=== PATIENT | female | born 1975 | race Caucasian/White ===

== ENCOUNTER 2018-02-03 01:01 | Observation (INO) ==
[2018-02-03] MEDS ORDERED: 0.9 % Sodium Chloride 1,000 ML IVC ONE (01:16)
--- NOTE | 2018-02-03 01:18 | Emergency Department Note ---
Disposition Clinical Impression: Hyponatremia, Diarrhea Disposition: Admitted As Inpatient General Adult HPI - General Chief complaint: ED Nausea/Vomiting/Diarrhea Stated complaint: diarrhea Time Seen by Provider: 02/03/18 01:09 - History of Present Illness Pain Scale: 8 - Related Data Home Medications Medication Instructions Recorded Confirmed RX: Multivitamin [Multivitamins] 1 each PO DAILY #0 01/22/15 03/09/16 RX: Melatonin 5 mg PO HS PRN 10/06/15 03/09/16 RX: Omeprazole [PriLOSEC] 20 mg PO DAILY 10/06/15 03/09/16 RX: Cholecalciferol (Vitamin D3) 1,000 unit PO DAILY 03/09/16 03/09/16 [Vitamin D3] RX: Divalproex (24 HR) [Depakote 1,000 mg PO HS 03/09/16 03/09/16 ER (24 HR)] RX: Divalproex (24 HR) [Depakote 750 mg PO QAM 03/09/16 03/09/16 ER (24 HR)] RX: Etodolac [Lodine] 400 mg PO BID 03/09/16 03/09/16 RX: Norgestrel-Ethinyl Estradiol 1 each PO DAILY 03/09/16 03/09/16 [Xit-Eaehhbls-53 Tablet] RX: Sertraline [Zoloft] 50 mg PO DAILY 03/09/16 03/09/16 Previous Rx's Medication Instructions Recorded RX: Clindamycin [Cleocin] 150 mg PO Q6HR #8 capsule 03/08/16 RX: OxyCODONE Immed Rel 5 mg PO Q8HR PRN #30 tablet 03/08/16 [Roxicodone 5 MG] Allergies Allergy/AdvReac Type Severity Reaction Status Date / Time topiramate [From Topamax] AdvReac Irritable Verified 03/09/16 06:42 IV contrast Allergy See Uncoded 06/06/15 21:23 Comments Past Medical History - Past Medical History Medical history: Reports: GERD, seizures Surgical history: Reports: orthopedic, other, other Psychiatric history: Reports: no psych history - Social History Smoking Status: Never smoker Smokeless Tobacco Status: No Alcohol use: Reports: none Drug use: Reports: none Course Vital Signs Temperature 98.9 F 02/03/18 01:04 Pulse Rate 87 02/03/18 01:04 Respiratory Rate 16 02/03/18 01:04 Blood Pressure 127/84 02/03/18 01:04 O2 Sat by Pulse Oximetry 97 02/03/18 01:04 Temperature 98.9 F 02/03/18 01:15 Pulse Rate 86 02/03/18 03:53 Respiratory Rate 16 02/03/18 03:53 Blood Pressure 127/85 02/03/18 03:53 O2 Sat by Pulse Oximetry 98 02/03/18 03:53 Oxygen Delivery Oxygen Delivery Room Air Medical Decision Making - Lab Data Result diagrams: 02/03/18 01:35 02/03/18 01:35 Lab Results 02/03/18 02/03/18 02/03/18 Range/Units 01:35 01:35 01:35 WBC 5.3 (4.3-11.1) K/mcL RBC 4.26 (3.82-4.97) M/mcL Hgb 12.9 (11.5-15.4) g/dL Hct 37.2 (35.3-44.9) % MCV 87.3 (83.0-100.0) fL MCH 30.3 (28.0-33.3) pg MCHC 34.7 (31.6-35.5) g/dL RDW 13.2 (11.5-14.5) % Plt Count 186 (140-400) K/mcL MPV 9.8 (9.4-12.4) fL Immature Gran % 0.4 (0-4) % Seg Neutrophils % 34.9 % Lymphocytes % 56.1 % Monocytes % 8.0 % Eosinophils % 0.4 % Basophils % 0.2 % Neutrophils # 1.9 (1.6-8.9) K/mcL Lymphocytes # 3.0 (0.6-4.6) K/mcL Monocytes # 0.4 (0.0-1.3) K/mcL Eosinophils # 0.0 (0.0-0.6) K/mcL Basophils # 0.0 (0.0-0.2) K/mcL Sodium 128 L (136-145) mEq/L Potassium 4.1 (3.5-5.1) mEq/L Chloride 97 L (98-107) mEq/L Carbon Dioxide 23 (23-29) mEq/L BUN 9 (6-20) mg/dL Creatinine 0.55 L (0.60-1.20) mg/dL Est GFR ( Amer) > 60 (> 60) Est GFR (Non-Af Amer) > 60 (> 60) BUN/Creatinine Ratio 16 (6-26) Glucose 101 (70-105) mg/dL Calculated Osmolality 265 L (280-300) Calcium 8.6 (8.6-10.3) mg/dL Magnesium 1.8 (1.6-2.6) mg/dL Total Bilirubin 0.3 (0.3-1.0) mg/dL AST 21 (13-39) Units/L ALT 20 (7-52) Units/L Alkaline Phosphatase 27 L (34-104) Units/L Serum Total Protein 6.7 (6.4-8.9) g/dL Albumin 4.1 (3.5-5.7) g/dL Globulin 2.6 (2.4-3.5) g/dL Albumin/Globulin Ratio 1.6 (1.1-2.2) Lipase 25 (11-82) Units/L Stl C. diff Tox B Gene (Negative) Valproic Acid 112 H* (50-100) mcg/mL 02/03/18 Range/Units 03:15 WBC (4.3-11.1) K/mcL RBC (3.82-4.97) M/mcL Hgb (11.5-15.4) g/dL Hct (35.3-44.9) % MCV (83.0-100.0) fL MCH (28.0-33.3) pg MCHC (31.6-35.5) g/dL RDW (11.5-14.5) % Plt Count (140-400) K/mcL MPV (9.4-12.4) fL Immature Gran % (0-4) % Seg Neutrophils % % Lymphocytes % % Monocytes % % Eosinophils % % Basophils % % Neutrophils # (1.6-8.9) K/mcL Lymphocytes # (0.6-4.6) K/mcL Monocytes # (0.0-1.3) K/mcL Eosinophils # (0.0-0.6) K/mcL Basophils # (0.0-0.2) K/mcL Sodium (136-145) mEq/L Potassium (3.5-5.1) mEq/L Chloride (98-107) mEq/L Carbon Dioxide (23-29) mEq/L BUN (6-20) mg/dL Creatinine (0.60-1.20) mg/dL Est GFR ( Amer) (> 60) Est GFR (Non-Af Amer) (> 60) BUN/Creatinine Ratio (6-26) Glucose (70-105) mg/dL Calculated Osmolality (280-300) Calcium (8.6-10.3) mg/dL Magnesium (1.6-2.6) mg/dL Total Bilirubin (0.3-1.0) mg/dL AST (13-39) Units/L ALT (7-52) Units/L Alkaline Phosphatase (34-104) Units/L Serum Total Protein (6.4-8.9) g/dL Albumin (3.5-5.7) g/dL Globulin (2.4-3.5) g/dL Albumin/Globulin Ratio (1.1-2.2) Lipase (11-82) Units/L Stl C. diff Tox B Gene Negative (Negative) Valproic Acid (50-100) mcg/mL Attestation Statement - Attestation Attestation: I examined this patient and my medical decision-making was reviewed with the Resident Physician. I agree with the documented findings, disposition and treatment plan as described except to the extent set forth below. [id number] time provided Patient arrives complaining of diarrhea that started today. She recently completed antibiotics 2 weeks ago. No recent travel history. One known ill contacts. She denies nausea, vomiting or bloody stools. Mild periumbilical abdominal cramping. Appears in no acute distress on exam
--- NOTE | 2018-02-03 01:29 | Emergency Department Note ---
Disposition Clinical Impression: Hyponatremia, Diarrhea Disposition: Admitted As Inpatient Referrals: Chaitanya Pagan MD [Primary Care Provider] - Forms: ED Satisfaction Letter Nausea/Vomiting/Diarrhea HPI - General Chief complaint: ED Nausea/Vomiting/Diarrhea Stated complaint: diarrhea Time Seen by Provider: 02/03/18 01:09 Source: patient, family Limitations: no limitations - History of Present Illness HPI Narrative: 42 YO F with PMH significant for hydrocephalus S/P THIRD COOK shunt, SIADH and seizure disorder (on Keppra) who presents with approximately 12 hours of frequen diarrhea. Pily has one recent sick contact exposure approximately 2 days ago, who had similar symptoms. She has also recently been on antibiotics (amoxicillin) for a chronic sinus infection. at approximately Noon yesterday she had an initial episode of nonbloody diarrhea, then had approximately 20 further episodes between then and her presentation to the ED. She denies F/C/NS, N/V. She denies melena or hematochezia, but does admit to some cramping abdominal pain. Her appetite has decreased since onset of symptoms. Pt Subjective Complaint: diarrhea Onset (ago): hour(s) Associated Abdominal Pain: Yes If pain, Location of pain: diffuse Severity: moderate Quality: cramping Consistency: intermittent Improves with: nothing Worsens with: nonthing Context: sick contacts, recent antibiotic use Associated symptoms: Denies: chest pain, cough, diaphoresis, fever/chills - Related Data Home Medications Medication Instructions Recorded Confirmed Multivitamin [Multivitamins] 1 each PO DAILY #0 01/22/15 03/09/16 Melatonin 5 mg PO HS PRN 10/06/15 03/09/16 Omeprazole [PriLOSEC] 20 mg PO DAILY 10/06/15 03/09/16 Cholecalciferol (Vitamin D3) 1,000 unit PO DAILY 03/09/16 03/09/16 [Vitamin D3] Divalproex (24 HR) [Depakote ER 1,000 mg PO HS 03/09/16 03/09/16 (24 HR)] Divalproex (24 HR) [Depakote ER 750 mg PO QAM 03/09/16 03/09/16 (24 HR)] Etodolac [Lodine] 400 mg PO BID 03/09/16 03/09/16 Norgestrel-Ethinyl Estradiol 1 each PO DAILY 03/09/16 03/09/16 [[id number]-69 Tablet] Sertraline [Zoloft] 50 mg PO DAILY 03/09/16 03/09/16 Previous Rx's Medication Instructions Recorded Clindamycin [Cleocin] 150 mg PO Q6HR #8 capsule 03/08/16 OxyCODONE Immed Rel [Roxicodone 5 5 mg PO Q8HR PRN #30 tablet 03/08/16 MG] Allergies Allergy/AdvReac Type Severity Reaction Status Date / Time topiramate [From Topamax] AdvReac Irritable Verified 03/09/16 06:42 IV contrast Allergy See Uncoded 06/06/15 21:23 Comments Constitutional: Denies: fever, chills, weakness ENT ED: Denies: ear pain, throat pain, dysphagia Cardiovascular: Denies: chest pain, palpitations Respiratory: Denies: cough, dyspnea, wheezes Gastrointestinal: Reports: abdominal pain, diarrhea. Denies: nausea, vomiting, melena, hematochezia Past Medical History - Past Medical History Medical history: Reports: GERD, seizures Surgical history: Reports: orthopedic, other, other Psychiatric history: Reports: no psych history - Social History Smoking Status: Never smoker Smokeless Tobacco Status: No Alcohol use: Reports: none Drug use: Reports: none Physical Exam - General Limitations: no limitations General appearance: alert - Head Head exam: atraumatic, normocephalic, normal inspection - Eye Eye exam: Present: normal appearance, PERRL, EOMI - ENT ENT exam: normal exam, normal oropharynx, mucous membranes moist - Neck Neck exam: Present: normal inspection, full ROM - Chest Chest inspection: Present: normal inspection, symmetric chest wall rise - Respiratory Respiratory exam: Present: normal lung sounds bilaterally. Absent: respiratory distress, wheezes, accessory muscle use - Cardiovascular Cardiovascular exam: Present: regular rate, normal rhythm, normal heart sounds. Absent: tachycardia, systolic murmur - Abdominal Exam Abdominal exam: Present: soft, Non-Tender, diminished bowel sounds - Neurological Exam Neurological exam: Present: alert, oriented X3, CN II-XII intact - Psychiatric Psychiatric exam: Present: normal affect, normal mood - Skin Skin exam: Present: warm, dry, intact Course Course Narrative: Lab results reveal hyponatremia of 128. This finding was discussed with family, who was concerned as Pily has a history of precipitous drops in her sodium level in the setting of changes related to her SIADH. This individual with hyponatremia, SIADH and signficant fluid loss 2/2 diarrhea merits inpatient evaluation and treatment. Vital Signs Temperature 98.9 F 02/03/18 01:04 Pulse Rate 87 02/03/18 01:04 Respiratory Rate 16 02/03/18 01:04 Blood Pressure 127/84 02/03/18 01:04 O2 Sat by Pulse Oximetry 97 02/03/18 01:04 Temperature 98.9 F 02/03/18 01:15 Pulse Rate 87 02/03/18 01:15 Respiratory Rate 16 02/03/18 01:15 Blood Pressure 127/84 02/03/18 01:15 O2 Sat by Pulse Oximetry 97 02/03/18 01:15 Oxygen Delivery Oxygen Delivery Room Air Nausea/Vomiting/Diarrhea - Lab Data Result diagrams: 02/03/18 01:35 02/03/18 01:35 Lab Results 02/03/18 02/03/18 02/03/18 Range/Units 01:35 01:35 01:35 WBC 5.3 (4.3-11.1) K/mcL RBC 4.26 (3.82-4.97) M/mcL Hgb 12.9 (11.5-15.4) g/dL Hct 37.2 (35.3-44.9) % MCV 87.3 (83.0-100.0) fL MCH 30.3 (28.0-33.3) pg MCHC 34.7 (31.6-35.5) g/dL RDW 13.2 (11.5-14.5) % Plt Count 186 (140-400) K/mcL MPV 9.8 (9.4-12.4) fL Immature Gran % 0.4 (0-4) % Seg Neutrophils % 34.9 % Lymphocytes % 56.1 % Monocytes % 8.0 % Eosinophils % 0.4 % Basophils % 0.2 % Neutrophils # 1.9 (1.6-8.9) K/mcL Lymphocytes # 3.0 (0.6-4.6) K/mcL Monocytes # 0.4 (0.0-1.3) K/mcL Eosinophils # 0.0 (0.0-0.6) K/mcL Basophils # 0.0 (0.0-0.2) K/mcL Sodium 128 L (136-145) mEq/L Potassium 4.1 (3.5-5.1) mEq/L Chloride 97 L (98-107) mEq/L Carbon Dioxide 23 (23-29) mEq/L BUN 9 (6-20) mg/dL Creatinine 0.55 L (0.60-1.20) mg/dL Est GFR ( Amer) > 60 (> 60) Est GFR (Non-Af Amer) > 60 (> 60) BUN/Creatinine Ratio 16 (6-26) Glucose 101 (70-105) mg/dL Calculated Osmolality 265 L (280-300) Calcium 8.6 (8.6-10.3) mg/dL Magnesium 1.8 (1.6-2.6) mg/dL Total Bilirubin 0.3 (0.3-1.0) mg/dL AST 21 (13-39) Units/L ALT 20 (7-52) Units/L Alkaline Phosphatase 27 L (34-104) Units/L Serum Total Protein 6.7 (6.4-8.9) g/dL Albumin 4.1 (3.5-5.7) g/dL Globulin 2.6 (2.4-3.5) g/dL Albumin/Globulin Ratio 1.6 (1.1-2.2) Lipase 25 (11-82) Units/L Valproic Acid 112 H* (50-100) mcg/mL
[2018-02-03 01:47] LABS: Basophils % 0.2 %; Eosinophils % 0.4 %; Hematocrit 37.2 % (35.3-44.9); Hemoglobin 12.9 g/dL (11.5-15.4); Immature Granulocytes % 0.4 % (0-4); Lymphocytes % 56.1 %; Mean Corpuscular HGB Conc 34.7 g/dL (31.6-35.5); Mean Corpuscular Hemoglobin 30.3 pg (28.0-33.3); Mean Corpuscular Volume 87.3 fL (83.0-100.0); Mean Platelet Volume 9.8 fL (9.4-12.4); Monocytes # 0.4 K/mcL (0.0-1.3); Neutrophils # 1.9 K/mcL (1.6-8.9); Platelet Count 186 K/mcL (140-400); Red Blood Count 4.26 M/mcL (3.82-4.97); Red Cell Distribution Width 13.2 % (11.5-14.5); Segmented Neutrophils % 34.9 %
[2018-02-03 02:08] LABS: Alanine Aminotransferase 20 Units/L (7-52); Albumin 4.1 g/dL (3.5-5.7); Albumin/Globulin Ratio 1.6 (1.1-2.2); Alkaline Phosphatase 27 Units/L (34-104); Aspartate Amino Transferase 21 Units/L (13-39); BUN/Creatinine Ratio 16 (6-26); Bilirubin,Total 0.3 mg/dL (0.3-1.0); Blood Urea Nitrogen 9 mg/dL (6-20); Calcium 8.6 mg/dL (8.6-10.3); Carbon Dioxide 23 mEq/L (23-29); Chloride 97 mEq/L (98-107); Globulin 2.6 g/dL (2.4-3.5); Glucose 101 mg/dL (70-105); Lipase 25 Units/L (11-82); Magnesium 1.8 mg/dL (1.6-2.6); Osmolality,Calculated 265 (280-300); Potassium 4.1 mEq/L (3.5-5.1); Sodium 128 mEq/L (136-145); Total Protein 6.7 g/dL (6.4-8.9); eGFR For Non-African Americans > 60 (> 60)
[2018-02-03] MEDS ORDERED: Acetaminophen 325 MG TABLET PO PRN (05:19)
[2018-02-03] MEDS ORDERED: *HR* LORazepam 2 MG/ML VIAL IVP PRN (05:19)
[2018-02-03] MEDS ORDERED: Naloxone 0.4 MG/ML INJ IVP PRN (05:19)
--- NOTE | 2018-02-03 05:44 | Internal Med History&Physical ---
Date of Encounter: 02/03/18 Time of Encounter: 03:50 Internal Medicine - H&P: HPI Chief complaint: diarrhea; hyponatremia Admitted From: Emergency Dept Plans for Post Hospital Care: Home History of present illness: Ms. France is a 42 year old female who presents to the ER after 24 hour history of profound diarrhea. She had ill contact with a friend who had similar symptoms. She had routine labs performed and was noted to have hyponatremia. As a result, patient's mother requested admission to hospital. Patient was subsequently admitted to the hospitalist service. Upon my assessment of the patient, patient is lying in bed comfortably in the ER. She appears minimally dehydrated. 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 She has a [employer] shunt and has had prior shunt malfunction in the past. According to patient and mother, she has had no nausea, no vomiting, no altered mental status, and no other neurologic symptoms. She has had watery diarrhea since yesterday. She has had no fevers, chills, or night sweats. She recently finished antibiotics for sinusitis. She does not take any diuretics. Mother was very nervous about patient receiving too much fluids because of the risk of hyponatremia. She has been hospitalized before at [facility] for hyponatremia and shunt issues. I offered to admit her here versus transfer to [facility] from the ER. Mother was hoping to stay here, but she and I decided to proceed with a CT of the head to rule out any shunt malfunction issues. We therefore ordered a CT the head, and I personally called and discussed with the radiologist on-call. There was no change in status from her prior CT of the head and shunt appears to be stable per radiology. Given her complex history, history of SIADH, seizure disorder, and recurrent bouts of hyponatremia, I discussed with mother that we will consult neurology and nephrology for assistance. Past Med Surg Social Fam HX - Past Medical History Attestation: Yes The following information was validated with the patient. 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 - Social History Smoking Status: Never smoker Smokeless Tobacco Status: No Alcohol use: none Drug use: none Current living situation: Home, With Family Activity Level: Independent ambulation Recent Out of Country Travel Within the Last 8 Weeks: No - Family History Mother Hx Family Cardiac Disorders: Yes Hx Family Cancer: Yes Internal Medicine - H&P: Meds Multivitamin [Multivitamins] 1 each PO DAILY #0 01/22/15 [History] Melatonin 5 mg PO HS PRN 10/06/15 [History] Omeprazole [PriLOSEC] 20 mg PO DAILY 10/06/15 [History] Clindamycin [Cleocin] 150 mg PO Q6HR #8 capsule 03/08/16 [Rx] OxyCODONE Immed Rel [Roxicodone 5 MG] 5 mg PO Q8HR PRN #30 tablet 03/08/16 [Rx] Cholecalciferol (Vitamin D3) [Vitamin D3] 1,000 unit PO DAILY 03/09/16 [History] Divalproex (24 HR) [Depakote ER (24 HR)] 1,000 mg PO HS 03/09/16 [History] Divalproex (24 HR) [Depakote ER (24 HR)] 750 mg PO QAM 03/09/16 [History] Etodolac [Lodine] 400 mg PO BID 03/09/16 [History] Norgestrel-Ethinyl Estradiol [Dno-Fprcluwr-56 Tablet] 1 each PO DAILY 03/09/16 [History] Sertraline [Zoloft] 50 mg PO DAILY 03/09/16 [History] Allergy/AdvReac Type Severity Reaction Status Date / Time topiramate [From Topamax] AdvReac Irritable Verified 03/09/16 06:42 IV contrast Allergy See Uncoded 06/06/15 21:23 Comments - Constitutional Constitutional: no chills, no fever(s), no night sweats - EENT Eyes: no blurry vision, no change in vision Ears: no ear pain, no tinnitus Nose, mouth and throat: sinus pain, sinus pressure, no nasal congestion, no sore throat - Cardiovascular Cardiovascular ROS IM: no chest pain, no dyspnea, no dyspnea on exertion - Respiratory Respiratory: no cough, no hemoptysis, no chest congestion, no excessive phlegm production, no change in phlegm color - Gastrointestinal Gastrointestinal: diarrhea, no abdominal pain, no hematemesis, no hematochezia, no melena, no nausea, no vomiting - Genitourinary Genitourinary: no dysuria, no flank pain, no hematuria - Musculoskeletal Musculoskeletal ROS IM: no arthralgias, no back pain - Integumentary Integumentary IM: no rash, no jaundice - Neurological Neurological ROS: headache(s) (chronic), no disequilibrium, no dizziness, no focal weakness, no frequent falls - Psychiatric Psychiatric: no anxiety, no depression - Endocrine Endocrine IM: no cold intolerance, no heat intolerance, no polydipsia, no polyphagia, no polyuria - Allergic/Immunologic Allergic/Immunologic: no GI upset with certain foods - Constitutional Vitals: Temp Pulse Resp BP Pulse Ox 98.9 F 86 16 127/85 98 02/03/18 01:15 02/03/18 03:53 02/03/18 03:53 02/03/18 03:53 02/03/18 03:53 General appearance: Present: cooperative, A&O X 3, pleasant, no acute distress, answers questions appropriately Exam: appears minimally dehydrated - Head Head exam: Present: atraumatic, normal inspection Additional comments: palpable shun without pain, redness, swelling, or disruption in line along her head and neck - Eye Eye exam: Present: EOMI, PERRL. Absent: scleral icterus Pupils: Present: normal accommodation - ENT ENT exam: Present: mucous membranes dry (minimally), normal exam, normal oropharynx - Neck Neck exam general surgery: Present: full ROM, supple. Absent: lymphadenopathy, tenderness, nuchal rigidity, thyromegaly - Respiratory Respiratory exam: Present: CTAB. Absent: chest wall tenderness, rales, rhonchi, wheezes - Cardiovascular Cardiovascular exam: Present: RRR, +S1, +S2. Absent: diastolic murmur, systolic murmur - GI/Abdominal GI/Abdominal exam: Present: normal bowel sounds, soft. Absent: guarding, hepatomegaly, mass, rebound, splenomegaly, tenderness - Extremities Exam Extremities exam: Present: full ROM, normal capillary refill, normal inspection, warm, radial pulses palpable and symmetrical. Absent: calf tenderness, pedal edema, tenderness - Back Exam Back exam: Present: normal inspection. Absent: CVA tenderness (L), CVA tenderness (R) - Neurological Exam Neurological exam: Present: alert, CN II-XII intact, oriented X3, no focal deficits - Psychiatric Psychiatric exam: Present: normal affect, normal mood - Skin Skin exam: Present: dry, intact, warm Internal Med - H&P Results - Labs CBC & Chem 7: 02/03/18 01:35 02/03/18 01:35 Labs: Short CBC 02/03/18 Range/Units 01:35 WBC 5.3 (4.3-11.1) K/mcL Hgb 12.9 (11.5-15.4) g/dL Hct 37.2 (35.3-44.9) % Plt Count 186 (140-400) K/mcL Neutrophils # 1.9 (1.6-8.9) K/mcL BMP 02/03/18 01:35 Sodium 128 L Potassium 4.1 Chloride 97 L Carbon Dioxide 23 BUN 9 Creatinine 0.55 L Glucose 101 Calcium 8.6 Liver Function 02/03/18 Range/Units 01:35 Total Bilirubin 0.3 (0.3-1.0) mg/dL AST 21 (13-39) Units/L ALT 20 (7-52) Units/L Alkaline Phosphatase 27 L (34-104) Units/L Albumin 4.1 (3.5-5.7) g/dL - Impressions ITS Impressions Head CT 02/03/18 04:07 IMPRESSION: 1. Stable exam with no acute intracranial abnormality identified. 2. Unchanged right posterior approach ventriculostomy shunt with stable caliber of the ventricular system. D/ / Monique Garcia MD / Monique Garcia MD Interpreting Provider: Monique Garcia MD - Diagnostic Studies CT scan - head Status: image reviewed by me (discussed with radiology as well -- unchanged from prior) - Assessment and plan (1) Diarrhea Current Visit: Yes Status: Acute Assessment and plan: 1. Patient is hungry and requesting food. 2. Will feed and monitor oral intake. 3. Stool C. Diff pending as ordered in ER. 4. If unable to tolerate oral intake, may need IV fluids. Qualifiers: Diarrhea type: infectious Qualified Code(s): A09 - Infectious gastroenteritis and colitis, unspecified (2) Hyponatremia Current Visit: Yes Status: Acute Assessment and plan: 1. Will trend serial BMP and monitor sodium closely. 2. Consult nephrology for assistance in fluid/sodium balance. (3) Seizure disorder Current Visit: Yes Status: Chronic Assessment and plan: 1. Need to verify meds and resume as appropriate. 2. Consult neurology for assistance given VPA level in the toxic range. May need to decrease dose of VPA. Mother very reluctant to change medication without first consulting with [facility] neurology. 3. Seizure precautions. 4. Cautious correction of sodium level. (4) DVT prophylaxis Current Visit: Yes Status: Acute Assessment and plan: 1. Heparin SQ.
[2018-02-03] MEDS ORDERED: *HR* Heparin 5,000 UNIT/ML VIAL SQ SCH (06:00)
[2018-02-03 07:48] LABS: BUN/Creatinine Ratio 13 (6-26); Blood Urea Nitrogen 7 mg/dL (6-20); Calcium 8.3 mg/dL (8.6-10.3); Carbon Dioxide 27 mEq/L (23-29); Chloride 99 mEq/L (98-107); Glucose 94 mg/dL (70-105); Magnesium 1.7 mg/dL (1.6-2.6); Osmolality,Calculated 272 (280-300); Potassium 3.6 mEq/L (3.5-5.1); Sodium 132 mEq/L (136-145); eGFR For Non-African Americans > 60 (> 60)
[2018-02-03 10:24] LABS: BUN/Creatinine Ratio 13 (6-26); Blood Urea Nitrogen 7 mg/dL (6-20); Carbon Dioxide 26 mEq/L (23-29); Chloride 99 mEq/L (98-107); Glucose 94 mg/dL (70-105); Osmolality,Calculated 272 (280-300); Potassium 3.8 mEq/L (3.5-5.1); Sodium 132 mEq/L (136-145); eGFR For Non-African Americans > 60 (> 60)
--- NOTE | 2018-02-03 10:50 | Nephrology Consult Note ---
Date of Encounter: 02/03/18 Time of Encounter: 10:30 Assessment and Plan (1) Hyponatremia Current Visit: Yes Status: Acute Hypovolemic hyponatremia secondary to diarrhea of 24hrs duration. Reports recent antibiotic use taking azithromycin in November and December. She has been around a family friend this past Wednesday who had similar symptoms. Diarr hea has improved and she is not had it for about 3 hours now. -Likely acute on chronic hyponatremia since she takes sertraline and Depakote and with the new diarrhea. -sodium 132 (128 at admission) -serum osmolality 272 -head CT unremarkable Plan: -patient has had improved hyponatremia after receiving 1 L fluids in the ED. Will order for 1 more liter of normal saline at a rate of 125ml. Recommend to increase sodium by 6-8meq/24hr. This has been discussed with the patient's mother whom agrees. -will recheck BMP this afternoon. May possibly be discharged today. -Pending urinalysis, urine sodium, urine osmolality (2) Hypomagnesemia Current Visit: Yes Status: Acute Hypomagnesemia likely secondary to diarrhea -magnesium 1.7 -will supplement today (3) Diarrhea Current Visit: Yes Status: Acute Mother and patient reports diarrhea is improving. History of taking antibiotics, azithromycin in November and December. Recent contact with family friend whom had similar symptoms this past Wednesday. -C diff tests negative -management per primary team Qualifiers: Diarrhea type: infectious Qualified Code(s): A09 - Infectious gastroenteritis and colitis, unspecified History of Present Illness - Reason for Consult Consult date: 02/03/18 hyponatremia Requesting physician: Carlos Villanueva - Chief Complaint Diarrhea - History of Present Illness MS. 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 Nephrology was consulted due to hyponatremia. Upon examination of the patient her mother is that bedside. She reports that the patient had 24hr of diarrhea. She was drinking Pedialyte and popsicles continue to have diarrhea so she was brought to the ER. She has had abdominal pain and chills. She denied fever, melena, hematochezia, nausea, vomiting, dysuria, difficulty urinating. She has been around a family friend over the weekend whom had similar symptoms. She has also taken azithromycin 2 times once in November and once in December. The patient reports that she feels fine today. She has no history of kidney disease. She does take Depakote and sertraline. Past Med Surg Social Fam HX - Past Medical History Attestation: Yes The following information was validated with the patient. 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 - Social History Smoking Status: Never smoker Smokeless Tobacco Status: No Alcohol use: none Drug use: none - Family History Mother Age: 57 Living Status: Still Living Hx Family Cardiac Disorders: Yes Hx Family Cancer: Yes Medications and Allergies Multivitamin [Multivitamins] 1 each PO DAILY #0 01/22/15 [History] Melatonin 5 mg PO HS PRN 10/06/15 [History] Omeprazole [PriLOSEC] 20 mg PO DAILY 10/06/15 [History] Clindamycin [Cleocin] 150 mg PO Q6HR #8 capsule 03/08/16 [Rx] OxyCODONE Immed Rel [Roxicodone 5 MG] 5 mg PO Q8HR PRN #30 tablet 03/08/16 [Rx] Cholecalciferol (Vitamin D3) [Vitamin D3] 1,000 unit PO DAILY 03/09/16 [History] Divalproex (24 HR) [Depakote ER (24 HR)] 1,000 mg PO HS 03/09/16 [History] Divalproex (24 HR) [Depakote ER (24 HR)] 750 mg PO QAM 03/09/16 [History] Etodolac [Lodine] 400 mg PO BID 03/09/16 [History] Norgestrel-Ethinyl Estradiol [[id number]-[id number] Tablet] 1 each PO DAILY 03/09/16 [History] Sertraline [Zoloft] 50 mg PO DAILY 03/09/16 [History] Allergy/AdvReac Type Severity Reaction Status Date / Time topiramate [From Topamax] AdvReac Irritable Verified 03/09/16 06:42 IV contrast Allergy See Uncoded 06/06/15 21:23 Comments Review of Systems Constitutional: chills, no fever(s), no headache(s) Nose, mouth and throat: no dizziness Cardiovascular: no chest pain, no edema, no palpitations Respiratory: no cough, no dyspnea, no wheezing Gastrointestinal: abdominal pain, diarrhea, no hematochezia, no melena, no nausea, no vomiting Genitourinary Female: no difficulty urinating, no dysuria, no urinary urgency Integumentary: no erythema, no new lesions Neurological: no confusion, no headache(s) Psychiatric: no confusion Exam - Vital Signs Vital signs: Initial Vital Signs Temp Pulse Resp BP Pulse Ox 98.9 F 87 16 127/84 97 02/03/18 01:04 02/03/18 01:04 02/03/18 01:04 02/03/18 01:04 02/03/18 01:04 Vital Signs - Last 8 Hours Pulse Resp BP Pulse Ox 02/03/18 09:32 97 02/03/18 08:00 75 18 106/70 97 02/03/18 03:53 86 16 127/85 98 Intake and Output 02/02/18 02/03/18 02/03/18 23:59 07:59 15:59 Intake Total 1000 / 1000 120 / 120 Output Total 200 / 200 250 / 250 Balance 800 / 800 -130 / -130 Intake: IV Fluids 1000 / 1000 0.9 % Sodium Chloride 1,000 ML 1000 / 1000 @ 3750 mls/hr IVC .Q16M ONE Rx# :[id number] Oral 120 / 120 Output: Urine 200 / 200 250 / 250 Other: Meal Breakfast Percent of Meal Consumed 80% Weight 63.503 kg Patient Weight 02/03/18 23:59 Weight 63.503 kg - General Appearance Exam: Gen.: Vitals noted. No acute distress. AAOx3 HEENT: oropharynx clear, Normocephalic, atraumatic, moist mucous membranes Neck: Supple. No adenopathy. Cardiac: RRR, no murmur, +S1/S2, no lower extremity edema Pulmonary: CTA bilaterally, no wheezes, rales or rhonchi, equal chest expansion Abdomen: soft, lower quadrant tender, Bowel sounds noted, no guarding MSK: ROM intact, no joint swelling noted Extremities: nontender calf, no cyanosis or clubbing Neuro: A&Ox3, moves all extremities, no focal deficits Psych: Appropriate mood and behavior Results - Lab Results 02/03/18 01:35 02/03/18 10:00 Most recent lab results Calcium 8.0 mg/dL (8.6-10.3) L 02/03/18 10:00 Magnesium 1.7 mg/dL (1.6-2.6) 02/03/18 06:53 Consult Discharge Plan - Plan Referrals: Luis Miguel Jara MD [Partnered Physician] - 02/23/18 10:30 am Chaitanya Pagan MD [Primary Care Provider] - 02/07/18 2:15 pm ()
[2018-02-03] MEDS ORDERED: 0.9 % Sodium Chloride 1,000 ML IVC SCH (11:00)
[2018-02-03 11:51] VITALS: BP 110/72
--- NOTE | 2018-02-03 12:20 | Neurology - Consult Note ---
Date of Encounter: 02/03/18 Time of Encounter: 08:20 Assessment and Plan (1) Seizure disorder Current Visit: Yes Status: Chronic As far as seizures are concerned patient is stable currently she did not have any breakthrough seizures she is been well maintained on Depakote for quite some time her level is slightly elevated but at this time do not think that we need to be concerned about it as clinically she did not have any sign of toxicity, and fact slightly higher therapeutic level seems to be better patient like this will at high risk of seizures due to hyponatremia and other metabolic dysfunction Suggest that we should continue her home dose of Depakote CT scan is been stable no evidence of any shunt malfunction At this time EEG probably would not be helpful (2) History of brain shunt Current Visit: Yes Status: Acute CT scan did not show any shunt malfunction discussed with the mother (3) Hyponatremia Current Visit: Yes Status: Acute Continue to treat and at just her sodium other metabolic disturbances as per primary team History of Present Illness HPI: Ms. France is a 42 year old female who presents to the ER after 24 hour history of profound diarrhea. labs to have hyponatremia. Patient has an history of seizure disorder as well as as shunt placement and is been following up at [facility] did not have any clinical seizures, considering her complicated history and course neurology consult was requested. According to the mother who provided most of the history she is been following up with Sirena young. At [facility] neurology epilepsy clinic at the same time she sees surgery as well with yearly follow-up most recent shunt replacement was in 2014 she did not have any further replacement either had any seizures for quite some time she is been maintained on Depakote and been taking it on a regular basis, today have Depakote level noted to be slightly elevated Clinically no sinus symptoms of ataxia on any double vision She is been admitted with this profound diarrhea and hyponatremia CT of the head to rule out any shunt malfunction issues. There was no change in status from her prior CT of the head and shunt appears to be stable per radiology. 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 - Social History Smoking Status: Never smoker Smokeless Tobacco Status: No Alcohol use: none Drug use: none - Family History Mother Age: 57 Living Status: Still Living Hx Family Cardiac Disorders: Yes Hx Family Cancer: Yes Medications and Allergies Cholecalciferol (D-3) [Vitamin D] 1,000 unit PO DAILY 02/03/18 [History] Divalproex (24 HR) [Depakote ER (24 HR)] 250 mg PO BID 02/03/18 [History] Divalproex (24 HR) [Depakote ER (24 HR)] 500 mg PO BID 02/03/18 [History] Esomeprazole Magnesium [Nexium] 40 mg PO BID 02/03/18 [History] Gabapentin [Neurontin] 100 mg PO QAM 02/03/18 [History] Gabapentin [Neurontin] 300 mg PO HS 02/03/18 [History] Mesalamine [Pentasa] 1,000 mg PO DAILY 02/03/18 [History] Multivitamin [One Daily Multivitamin] 1 tab PO DAILY 02/03/18 [History] Norgestrel-Ethinyl Estradiol [Elinest-28 Tablet] 1 tab PO DAILY 02/03/18 [History] Ranitidine HCl [Acid Sas Etl Developer] 150 mg PO BID PRN 02/03/18 [History] Sertraline [Zoloft] 50 mg PO DAILY 02/03/18 [History] Terconazole Vag CRM [Terazol] 1 appl TP HS 02/03/18 [History] Allergy/AdvReac Type Severity Reaction Status Date / Time topiramate [From Topamax] AdvReac Irritable Verified 02/03/18 13:13 IV contrast Allergy See Uncoded 02/03/18 13:13 Comments All Systems: The remainder of the systems were reviewed and are negative Physical Examination - Vital Signs Vital Signs: Initial Vital Signs Temp Pulse Resp BP Pulse Ox 98.9 F 87 16 127/84 97 02/03/18 01:04 02/03/18 01:04 02/03/18 01:04 02/03/18 01:04 02/03/18 01:04 - Constitutional General appearance: comfortable - Neurologic Sensorimotor examination: intact Detailed motor examination: grossly full strength in all extremities Detailed sensory examination: intact Reflexes: Biceps: 1+, Triceps: 1+, Brachioradialis: 1+, Patella: 1+, Achilles: 1+ Mental Status Examination: awake, alert, oriented to person, oriented to place, oriented to time, follows commands appropriately, answers questions appropriately, no agnosia, no aphasia, no aproxia Cranial nerve examination: PERRL, EOMI, visual valdivia intact, corneal reflexes brisk symmetrically, sensory to face intact, mastication intact, no facial asymmetry is present, no dysarthria, hearing is intact symmetrically, soft palate elevates bilaterally upon phonation, gag reflex intact, flexes SCM and trapezius muscles symmetrically with full power, tongue protrudes midline, no atrophy or facial fasiculations present Results - Laboratory Findings CBC and BMP: 02/03/18 01:35 02/03/18 10:00 Abnormal lab findings: Abnormal lab results Sodium 132 mEq/L (136-145) L 02/03/18 10:00 Creatinine 0.56 mg/dL (0.60-1.20) L 02/03/18 10:00 Calculated Osmolality 272 (280-300) L 02/03/18 10:00 Calcium 8.0 mg/dL (8.6-10.3) L 02/03/18 10:00 Alkaline Phosphatase 27 Units/L (34-104) L 02/03/18 01:35 Valproic Acid 112 mcg/mL (50-100) H* 02/03/18 01:35 Consult Discharge Plan - Plan Referrals: Luis Miguel Jara MD [Partnered Physician] - 02/23/18 10:30 am Chaitanya Pagan MD [Primary Care Provider] - 02/07/18 2:15 pm ()
--- NOTE | 2018-02-03 12:55 | Discharge Summary ---
- NOTES TO OUTPATIENT PROVIDER Notes to Outpatient Provider: Follow up with PCP in one week Orders not resulted at time of discharge: Pending orders 02/03/18 05:19 ECG 12 lead ECG [ECG] Routine 02/03/18 10:47 Osmolality,Urine [UCHEM] Routine Sodium, Urine [UCHEM] Routine Urinalysis Reflex Cult & Micro [URIN] Routine Date of Encounter: 02/03/18 Time of Encounter: 12:53 - Discharge Diagnosis (1) Hyponatremia Priority: Primary Status: Acute (2) Diarrhea Priority: Primary Status: Acute Qualifiers: Diarrhea type: infectious Qualified Code(s): A09 - Infectious gastroenteritis and colitis, unspecified (3) Seizure disorder Priority: Secondary Status: Chronic (4) DVT prophylaxis Priority: Secondary Status: Acute Hospital course: Ms. France is a 42 year old female who presents to the ER after 24 hour history of profound diarrhea. She had ill contact with a friend who had similar symptoms. She had routine labs performed and was noted to have hyponatremia @ 128 . Patient got admitted admitted in the hospital and started her on symptomatic and supportive care. She did receive IV fluids NS 1 lit in the ER. This morning her sodium was 132, and her diarrhea resolved completely. She is tolerating PO intake well. So will discharge her home in a stable condition to day. Talked to patient's mother and explain to her about current care - Time Spent with Patient Total time spent providing and/or coordinating discharge services: - Discharge Medications Home Medications: Multivitamin [Multivitamins] 1 each PO DAILY #0 01/22/15 [History] Melatonin 5 mg PO HS PRN 10/06/15 [History] Omeprazole [PriLOSEC] 20 mg PO DAILY 10/06/15 [History] Clindamycin [Cleocin] 150 mg PO Q6HR #8 capsule 03/08/16 [Rx] OxyCODONE Immed Rel [Roxicodone 5 MG] 5 mg PO Q8HR PRN #30 tablet 03/08/16 [Rx] Cholecalciferol (Vitamin D3) [Vitamin D3] 1,000 unit PO DAILY 03/09/16 [History] Divalproex (24 HR) [Depakote ER (24 HR)] 1,000 mg PO HS 03/09/16 [History] Divalproex (24 HR) [Depakote ER (24 HR)] 750 mg PO QAM 03/09/16 [History] Etodolac [Lodine] 400 mg PO BID 03/09/16 [History] Norgestrel-Ethinyl Estradiol [[id number]-38 Tablet] 1 each PO DAILY 03/09/16 [History] Sertraline [Zoloft] 50 mg PO DAILY 03/09/16 [History] Allergies/Adverse Reactions: Allergy/AdvReac Type Severity Reaction Status Date / Time topiramate [From Topamax] AdvReac Irritable Verified 03/09/16 06:42 IV contrast Allergy See Uncoded 06/06/15 21:23 Comments Date of admission: 02/03/18 03:39 Primary care physician: Chaitanya Pagan MD Consults: 02/03/18 05:19 Consult to Nephrology [CONS] Routine Consulting Provider: [facility]/ORIALDO/JENNIFER/JALIL Reason for Consult: hyponatremia; h/o SIADH Call Completed: No Consult to Neurology [CONS] Routine Consulting Provider: [facility] Reason for Consult: seizure disorder Call Completed: No - Constitutional Vitals: Temp Pulse Resp BP Pulse Ox 98.7 F 86 18 110/72 96 02/03/18 11:49 02/03/18 11:49 02/03/18 11:49 02/03/18 11:49 02/03/18 11:49 General appearance: Present: cooperative, A&O X 3, pleasant, no acute distress, answers questions appropriately Exam: Gen: Alert, awake, Oriented to time,place and person Chest: Diminished breath sounds B/L, No wheezing, No crackles, No rales Heart: S1S2+ RRR No murmurs Abd: Soft, NT, BS +, No organomegaly Ext: No edema, pulses are palpable, No calf tenderness Neuro : Benign findings Skin: No rash. - Patient Status Disposition: Home, Self-Care Condition: Good - Discharge Instructions Follow Up With: Luis Miguel Jara MD [Partnered Physician] - 02/23/18 10:30 am Chaitanya Pagan MD [Primary Care Provider] - 02/07/18 2:15 pm () - Diet and Activity Activity: increase activity as tolerated Diet: regular diet
[2018-02-03] MEDS ORDERED: Divalproex (12 HR) 250 MG TABLET PO SCH (13:15)
[2018-02-03 13:56] LABS: Bilirubin,Urine Negative (Negative); Blood,Urine Negative (Negative); Clarity,Urine Clear (Clear); Color,Urine Yellow (Yellow); Glucose,Urine (UA) Normal (Normal); Ketones,Urine Trace mg/dL (Negative); Leukocyte Esterase,Urine Negative (Negative); Nitrite,Urine Negative (Negative); Protein,Urine Negative (Neg-Trace); Specific Gravity,Urine 1.015 (1.010-1.025); Urobilinogen,Urine Normal (Normal)
[2018-02-03] MEDS ORDERED: NON-FORMULARY MEDICATION 1 EACH EACH (Ranitidine Hcl [Acid Reducer] 150 MG) PO PRN (16:38)
[2018-02-03] MEDS ORDERED: MESALAMINE 1000 MG PO SCH (16:45)
[2018-02-03] MEDS ORDERED: Cholecalciferol (D-3) 1,000 UNIT TABLET PO SCH (16:45)
[2018-02-03] MEDS ORDERED: Divalproex (24 HR) 250 MG TABLET PO SCH (21:00)
[2018-02-03] MEDS ORDERED: NON-FORMULARY MEDICATION 1 EACH EACH (Esomeprazole Magnesium [Nexium] 40 MG) PO SCH (21:00)
[2018-02-03] MEDS ORDERED: Divalproex (24 HR) 500 MG TABLET PO SCH (21:00)
[2018-02-03] MEDS ORDERED: Gabapentin 300 MG CAPSULE PO SCH (21:00)
[2018-02-04] MEDS ORDERED: [UNRECOGNIZED DRUG - OTHER] PO SCH (09:00)
[2018-02-04] MEDS ORDERED: Gabapentin 100 MG CAPSULE PO SCH (09:00)
[2018-02-04] MEDS ORDERED: NON-FORMULARY MEDICATION 1 EACH EACH (Multivitamin [One Daily Multivitamin] 1 TAB) PO SCH (09:00)
== END 2018-02-03 18:20 | disposition home or self-care (01) ==
LOC: 3BNU 01:01 → EMEROOARM 01:01 → 3BNU 05:25
PROVIDERS: ADMIT Internal Medicine; ATTEND Internal Medicine

== ENCOUNTER 2022-01-13 13:44 | Inpatient (IN) ==
[2022-01-13 15:57] LABS: Bilirubin,Urine Negative (Negative); Blood,Urine Negative (Negative); Clarity,Urine Clear (Clear); Color,Urine Light-Yellow (Yellow); Glucose,Urine (UA) Normal (Normal); Ketones,Urine Negative (Negative); Leukocyte Esterase,Urine Negative (Negative); Nitrite,Urine Negative (Negative); Protein,Urine Trace mg/dL (Neg-Trace); Specific Gravity,Urine 1.022 (1.010-1.025); Urobilinogen,Urine Normal (Normal)
[2022-01-13 16:04] LABS: Basophils % 0.3 %; Eosinophils # 0.1 K/mcL (0.0-0.6); Hematocrit 41.8 % (35.3-44.9); Hemoglobin 14.4 g/dL (11.5-15.4); Immature Granulocytes % 0.3 % (0-4); Lymphocytes # 3.5 K/mcL (0.6-4.6); Lymphocytes % 57.3 %; Mean Corpuscular HGB Conc 34.4 g/dL (31.6-35.5); Mean Corpuscular Hemoglobin 30.4 pg (28.0-33.3); Mean Corpuscular Volume 88.2 fL (83.0-100.0); Mean Platelet Volume 9.3 fL (9.4-12.4); Monocytes # 0.4 K/mcL (0.0-1.3); Monocytes % 6.7 %; Neutrophils # 2.1 K/mcL (1.6-8.9); Platelet Count 215 K/mcL (140-400); Red Blood Count 4.74 M/mcL (3.82-4.97); Red Cell Distribution Width 13.8 % (11.5-14.5); Segmented Neutrophils % 34.4 %; White Blood Count 6.2 K/mcL (4.3-11.1)
[2022-01-13 16:26] LABS: BUN/Creatinine Ratio 17 (6-26); Blood Urea Nitrogen 12 mg/dL (6-20); Calcium 10.1 mg/dL (8.6-10.3); Carbon Dioxide 31 mEq/L (23-29); Chloride 89 mEq/L (98-107); Glucose 87 mg/dL (70-105); Osmolality,Calculated 261 (280-300); Potassium 4.8 mEq/L (3.5-5.1); Sodium 126 mEq/L (136-145); Troponin I < 0.03 ng/mL (< 0.04)
[2022-01-13 17:09] LABS: Adenovirus Not Detected (Not Detect); Bordetella Pertussis Not Detected (Not Detect); Chlamydophila pneumoniae Not Detected (Not Detect); Coronavirus 229E Not Detected (Not Detect); Coronavirus HKU1 Not Detected (Not Detect); Coronavirus NL63 Not Detected (Not Detect); Coronavirus OC43 Not Detected (Not Detect); Human Metapneumovirus Not Detected (Not Detect); Human Rhinovirus/Enterovirus Not Detected (Not Detect); Influenza A Subtype 2009 H1 Not Detected (Not Detect); Influenza B Not Detected (Not Detect); Mycoplasma pneumoniae Not Detected (Not Detect); Parainfluenza Virus 1 Not Detected (Not Detect); Parainfluenza Virus 2 Not Detected (Not Detect); Parainfluenza Virus 3 Not Detected (Not Detect); Parainfluenza Virus 4 Not Detected (Not Detect); Respiratory Syncytial Virus Not Detected (Not Detect); SARS-CoV-2 Not Detected (Not Detect)
[2022-01-13] MEDS ORDERED: Ondansetron 4 MG/2 ML VIAL IVP PRN (21:13)
[2022-01-13] MEDS ORDERED: Acetaminophen 325 MG TABLET PO PRN (21:13)
[2022-01-13] MEDS ORDERED: Naloxone 0.4 MG/ML INJ IVP PRN (21:13)
[2022-01-13] MEDS ORDERED: Loratadine 10 MG TABLET PO PRN (23:48)
[2022-01-13] MEDS ORDERED: Clobetasol Propionate 0.05% 15 GM Cream Tube TP PRN (23:48)
[2022-01-13] MEDS ORDERED: PIMECROLIMUS TP PRN (23:48)
[2022-01-13] MEDS ORDERED: Triamcinolone Acet 0.1% CRM 15 GM TUBE TP PRN (23:48)
[2022-01-14] MEDS: Divalproex (24 HR) 250 MG TABLET PO SCH ×4 (01:32→20:17)
[2022-01-14 03:08] LABS: Basophils % 0.3 %; Eosinophils # 0.1 K/mcL (0.0-0.6); Eosinophils % 0.6 %; Hematocrit 36.5 % (35.3-44.9); Immature Granulocytes % 0.3 % (0-4); Lymphocytes # 5.2 K/mcL (0.6-4.6); Lymphocytes % 67.2 %; Mean Corpuscular HGB Conc 34.2 g/dL (31.6-35.5); Mean Corpuscular Hemoglobin 29.9 pg (28.0-33.3); Mean Corpuscular Volume 87.3 fL (83.0-100.0); Mean Platelet Volume 9.3 fL (9.4-12.4); Monocytes # 0.5 K/mcL (0.0-1.3); Monocytes % 5.8 %; Platelet Count 185 K/mcL (140-400); Red Blood Count 4.18 M/mcL (3.82-4.97); Red Cell Distribution Width 13.6 % (11.5-14.5); Segmented Neutrophils % 25.8 %; White Blood Count 7.8 K/mcL (4.3-11.1)
[2022-01-14 03:13] LABS: Hemoglobin 12.5 g/dL (11.5-15.4)
[2022-01-14 03:16] LABS: INR 1.1; Prothrombin Time 12.7 Seconds (9.4-12.1)
[2022-01-14 03:28] LABS: BUN/Creatinine Ratio 20 (6-26); Blood Urea Nitrogen 12 mg/dL (6-20); Calcium 9.3 mg/dL (8.6-10.3); Carbon Dioxide 27 mEq/L (23-29); Chloride 94 mEq/L (98-107); Glucose 112 mg/dL (70-105); Magnesium 1.6 mg/dL (1.6-2.6); Osmolality,Calculated 267 (280-300); Phosphorous 4.4 mg/dL (2.7-4.5); Sodium 128 mEq/L (136-145)
[2022-01-14 03:40] LABS: Thyroid Stimulating Hormone 5.773 mcIU/mL (0.340-5.600)
[2022-01-14] MEDS ORDERED: Acetaminophen 325 MG TABLET PO PRN (06:00)
[2022-01-14] MEDS: Gabapentin 100 MG CAPSULE PO SCH (08:37)
[2022-01-14] MEDS: Multivit/Ca/Min/Fe/FA 1 TAB TABLET PO SCH (08:37)
[2022-01-14] MEDS: Ascorbic Acid 500 MG TABLET PO SCH (08:38)
[2022-01-14] MEDS: LACTOSE REDUCED FOOD PO SCH ×3 (08:40→20:13)
[2022-01-14 12:38] LABS: BUN/Creatinine Ratio 23 (6-26); Blood Urea Nitrogen 15 mg/dL (6-20); Calcium 9.6 mg/dL (8.6-10.3); Carbon Dioxide 27 mEq/L (23-29); Chloride 95 mEq/L (98-107); Glucose 94 mg/dL (70-105); Osmolality,Calculated 267 (280-300); Potassium 4.3 mEq/L (3.5-5.1); Sodium 128 mEq/L (136-145)
[2022-01-14 16:29] LABS: BUN/Creatinine Ratio 20 (6-26); Blood Urea Nitrogen 14 mg/dL (6-20); Calcium 9.5 mg/dL (8.6-10.3); Carbon Dioxide 27 mEq/L (23-29); Chloride 94 mEq/L (98-107); Glucose 113 mg/dL (70-105); Osmolality,Calculated 267 (280-300); Potassium 4.3 mEq/L (3.5-5.1); Sodium 128 mEq/L (136-145)
[2022-01-14] MEDS: Gabapentin 300 MG CAPSULE PO SCH (20:17)
[2022-01-14] MEDS: Famotidine 20 MG TABLET PO SCH (20:18)
[2022-01-14 20:29] LABS: BUN/Creatinine Ratio 24 (6-26); Blood Urea Nitrogen 15 mg/dL (6-20); Calcium 9.1 mg/dL (8.6-10.3); Carbon Dioxide 27 mEq/L (23-29); Chloride 95 mEq/L (98-107); Glucose 134 mg/dL (70-105); Osmolality,Calculated 265 (280-300); Potassium 3.9 mEq/L (3.5-5.1); Sodium 126 mEq/L (136-145)
[2022-01-15 05:12] LABS: BUN/Creatinine Ratio 26 (6-26); Blood Urea Nitrogen 16 mg/dL (6-20); Carbon Dioxide 27 mEq/L (23-29); Chloride 97 mEq/L (98-107); Glucose 97 mg/dL (70-105); Osmolality,Calculated 267 (280-300); Sodium 128 mEq/L (136-145)
[2022-01-15 05:27] LABS: Triiodothyronine (T3) Free 2.87 pg/mL (2.50-3.90)
[2022-01-15] MEDS: Multivit/Ca/Min/Fe/FA 1 TAB TABLET PO SCH (08:36)
[2022-01-15] MEDS: Divalproex (24 HR) 250 MG TABLET PO SCH ×2 (08:36→21:05)
[2022-01-15] MEDS: Ascorbic Acid 500 MG TABLET PO SCH (08:36)
[2022-01-15] MEDS: Gabapentin 100 MG CAPSULE PO SCH (08:36)
[2022-01-15] MEDS: Cholecalciferol (D-3) 1,000 UNIT (25MCG) TABLET PO SCH (08:38)
[2022-01-15] MEDS: LACTOSE REDUCED FOOD PO SCH (11:10)
[2022-01-15 12:28] LABS: BUN/Creatinine Ratio 23 (6-26); Blood Urea Nitrogen 16 mg/dL (6-20); Calcium 9.5 mg/dL (8.6-10.3); Carbon Dioxide 30 mEq/L (23-29); Chloride 98 mEq/L (98-107); Glucose 102 mg/dL (70-105); Osmolality,Calculated 275 (280-300); Potassium 3.7 mEq/L (3.5-5.1); Sodium 132 mEq/L (136-145)
[2022-01-15 13:45] LABS: Potassium,Urine 14.1 mEq/L; Sodium, Urine 53.9 mEq/L
[2022-01-15 20:27] LABS: BUN/Creatinine Ratio 29 (6-26); Blood Urea Nitrogen 20 mg/dL (6-20); Calcium 9.4 mg/dL (8.6-10.3); Carbon Dioxide 29 mEq/L (23-29); Chloride 100 mEq/L (98-107); Glucose 106 mg/dL (70-105); Osmolality,Calculated 283 (280-300); Potassium 4.2 mEq/L (3.5-5.1); Sodium 135 mEq/L (136-145)
[2022-01-15] MEDS: Famotidine 20 MG TABLET PO SCH (21:05)
[2022-01-15] MEDS: Gabapentin 300 MG CAPSULE PO SCH (21:05)
[2022-01-16 05:52] LABS: BUN/Creatinine Ratio 34 (6-26); Blood Urea Nitrogen 19 mg/dL (6-20); Calcium 9.4 mg/dL (8.6-10.3); Carbon Dioxide 29 mEq/L (23-29); Chloride 99 mEq/L (98-107); Glucose 98 mg/dL (70-105); Osmolality,Calculated 278 (280-300); Potassium 4.1 mEq/L (3.5-5.1); Sodium 133 mEq/L (136-145)
[2022-01-16] MEDS: Ascorbic Acid 500 MG TABLET PO SCH (08:31)
[2022-01-16] MEDS: Multivit/Ca/Min/Fe/FA 1 TAB TABLET PO SCH (08:31)
[2022-01-16] MEDS: Divalproex (24 HR) 250 MG TABLET PO SCH ×2 (08:32→20:21)
[2022-01-16] MEDS: Cholecalciferol (D-3) 1,000 UNIT (25MCG) TABLET PO SCH (08:32)
[2022-01-16] MEDS: Gabapentin 100 MG CAPSULE PO SCH (08:32)
[2022-01-16 11:33] LABS: BUN/Creatinine Ratio 26 (6-26); Blood Urea Nitrogen 18 mg/dL (6-20); Calcium 9.2 mg/dL (8.6-10.3); Carbon Dioxide 29 mEq/L (23-29); Chloride 99 mEq/L (98-107); Glucose 96 mg/dL (70-105); Osmolality,Calculated 280 (280-300); Potassium 3.9 mEq/L (3.5-5.1); Sodium 134 mEq/L (136-145)
[2022-01-16] MEDS: Gabapentin 300 MG CAPSULE PO SCH (20:21)
[2022-01-16] MEDS: Famotidine 20 MG TABLET PO SCH (20:21)
[2022-01-17] MEDS: Gabapentin 100 MG CAPSULE PO SCH (08:52)
[2022-01-17] MEDS: Ascorbic Acid 500 MG TABLET PO SCH (08:52)
[2022-01-17] MEDS: Divalproex (24 HR) 250 MG TABLET PO SCH (08:52)
[2022-01-17] MEDS: Multivit/Ca/Min/Fe/FA 1 TAB TABLET PO SCH (08:53)
[2022-01-17] MEDS: Cholecalciferol (D-3) 1,000 UNIT (25MCG) TABLET PO SCH (08:53)
[2022-01-17 10:23] LABS: BUN/Creatinine Ratio 28 (6-26); Blood Urea Nitrogen 18 mg/dL (6-20); Carbon Dioxide 32 mEq/L (23-29); Chloride 98 mEq/L (98-107); Glucose 101 mg/dL (70-105); Osmolality,Calculated 284 (280-300); Potassium 4.1 mEq/L (3.5-5.1); Sodium 136 mEq/L (136-145)
[2022-01-17 11:25] VITALS: BP 101/79; PULSE 100; TEMP 98.5; O2SAT 96
== END 2022-01-17 13:21 | disposition home or self-care (01) | DRG 426 ==
LOC: 3NENU 13:44 → EMEROOARM 13:44 → SUATTDRO 21:32 → 3NENU 22:25
PROVIDERS: ADMIT Internal Medicine; ATTEND Internal Medicine